=== PATIENT | male | born 2000 | race Caucasian/White ===

== ENCOUNTER 2024-02-01 21:37 | Emergency (ER) | payer MEDICAID ==
[~2024-02-01] VITALS: Ht 177.8 cm; Wt 69.0 kg
[2024-02-01 21:51] VITALS: BP 138/83
== END 2024-02-01 21:51 | disposition home or self-care (01) ==
LOC: ED 21:37
DX: T16.1XXA Foreign body in right ear, initial encounter (principal); W44.B0XA Plastic object unspecified, entering into or through a natural orifice, initial encounter
CPT/HCPCS: 69200; 99282

== ENCOUNTER 2024-02-09 17:20 | Emergency (ER) | payer MEDICAID ==
[~2024-02-09] VITALS: Ht 177.8 cm; Wt 86.9 kg
--- OUTSIDE RECORDS SUMMARY | 2024-02-09 17:30 | XMS ---
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 Jennifer has no Care Guidelines for this patient. Lauro VIS[facility] COUNT (12 [address] [facility] NOTE: Visits indicate total known visits. ED/C VISIT TRACKING (12 MO.) [facility] COMPLAINT: - MED CLEARANCE 02/01/2024 21:39 [facility] [place] TYPE: Emergency COMPLAINT: - EAR PROBLEM DIAGNOSES: - Foreign body in right ear, initial encounter - Plastic object unspecified, entering into or through a natural orifice, initial encounter INPATIENT VISIT TRACKING (12 MO.) No inpatient visits to display in this time frame [email or web address]
[2024-02-09 21:09] LABS: BASOPHILS 0.8 % (0-2); EOSINOPHILS 1.7 % (0-6); HEMATOCRIT 41.2 % (35.0-50.0); HEMOGLOBIN 13.9 g/dL (12.0-18.0); MCH 28.5 (27-36); MCHC 33.9 g/dl (30-36); MONOCYTES 10.4 % (0-12); NEUTROPHILS 57.1 % (39-80); RDW 13.8 (10.5-15.0)
[2024-02-09 21:34] LABS: ACETAMINOPHEN 0 ug/mL (10-30); ALBUMIN 3.9 g/dL (3.4-5.0); ALBUMIN/GLOBULIN RATIO 1.34 (1.1-2.4); ALCOHOL, MEDICAL <3 ng/dL (<3); ALKALINE PHOSPHATASE 82 U/L (46-116); ALT (SGPT) 29 U/L (14-59); ANION GAP 12.9 (7-21); AST (SGOT) 20 U/L (15-37); BILIRUBIN, TOTAL 0.5 ng/dL (0.2-1.0); BUN/CREATININE RATIO 11.57 (6.0-28.6); CALCIUM 8.9 mg/dL (8.5-10.1); CARBON DIOXIDE 30 mmol/L (21-32); CHLORIDE 102 mmol/L (98-107); CREATININE, SERUM 0.95 mg/dL (0.70-1.30); GLOMERULAR FILTRATION RATE,EST 115 mL/min (>60); POTASSIUM 3.9 mmol/L (3.5-5.1); PROTEIN, TOTAL 6.8 g/dL (6.4-8.2); SALICYLATE <0.2 mg/dL (2.8-20.0); TSH, 3RD GENERATION 1.388 uIU/mL (0.358-3.740); UREA NITROGEN 11 mg/dL (7-18)
[2024-02-10 00:07] LABS: AMPHETAMINES, URINE POSITIVE (NEGATIVE); BARBITURATES, URINE NEGATIVE (NEGATIVE); BENZODIAZEPINE, URINE NEGATIVE (NEGATIVE); BUPRENORPHINE, URINE NEGATIVE (NEGATIVE); CANNABINOID, URINE NEGATIVE (NEGATIVE); COCAINE, URINE NEGATIVE (NEGATIVE); ECSTASY, URINE NEGATIVE (NEGATIVE); FENTANYL, URINE NEGATIVE (NEGATIVE); METHADONE, URINE NEGATIVE (NEGATIVE); OPIATES, URINE NEGATIVE (NEGATIVE); OXYCODONE, URINE NEGATIVE (NEGATIVE); PHENCYCLIDINE, URINE NEGATIVE (NEGATIVE)
[2024-02-10] MEDS ORDERED: OLANZapine 10 MG TABDIS PO SCH ×2 (17:00→21:00)
[2024-02-13] MEDS ORDERED: ZYPREXA ZYDIS10 MG PO (09:46)
[2024-02-13 10:08] VITALS: BP 137/81
== END 2024-02-13 10:12 | disposition home or self-care (01) ==
LOC: ED 17:20
PROVIDERS: Emergency Medicine
DX: F15.10 Other stimulant abuse, uncomplicated (principal); R46.89 Other symptoms and signs involving appearance and behavior
CPT/HCPCS: 36415; 80053; 80307; 84443; 85025; 85060; A9270; G0480